=== PATIENT | male | born 1980 | race Caucasian/White ===

== ENCOUNTER 2022-11-12 12:06 | Emergency (ER) | payer SELFPAY ==
[~2022-11-12] VITALS: Ht 167.6 cm; Wt 81.0 kg
[2022-11-12] MEDS ORDERED: LORAZEPAM 0.5MG TABLET PO ONE (15:30)
[2022-11-12] MEDS ORDERED: KETOROLAC 60MG/2ML VIAL IM ONE (15:30)
[2022-11-12 15:43] VITALS: BP 107/76
[2022-11-12] MEDS ORDERED: ONDANSETRON 4MG ODT PO ONE (15:45)
[2022-11-12] MEDS ORDERED: ONDA4TAB50 MT (16:50)
== END 2022-11-12 17:31 | disposition home or self-care (01) ==
LOC: ER 12:06
DX: R11.2 Nausea with vomiting, unspecified (principal); R10.13 Epigastric pain; Z90.49 Acquired absence of other specified parts of digestive tract
CPT/HCPCS: 71045; 93005; 96372; 99283; J1885; Q0162